=== PATIENT | male | born 2000 | race Hispanic/Latino ===

== ENCOUNTER 2022-10-01 15:06 | Emergency (ER) | payer SELFPAY ==
[2022-10-01] MEDS ORDERED: Lidocaine 1% w/Epinephrine 1:100K 20 ML VIAL ONE (15:23)
[2022-10-01] MEDS ORDERED: Boostrix 0.5 ML (Tdap) VIAL (>/=7 yrs of age) ONE (15:42)
[2022-10-01] MEDS ORDERED: Bacitracin 1 PK ONE (15:50)
== END 2022-10-01 15:57 | disposition home or self-care (01) ==
LOC: ERS 15:06
DX: S81.812A Laceration without foreign body, left lower leg, initial encounter (principal); W26.9XXA Contact with unspecified sharp object(s), initial encounter; Z23 Encounter for immunization
CPT/HCPCS: 12001; 90471; 90715

== ENCOUNTER 2022-10-12 11:42 | Emergency (ER) | payer SELFPAY | END 2022-10-12 12:30 | disposition home or self-care (01) | LOC: ERS 11:42 | DX: S81.812D Laceration without foreign body, left lower leg, subsequent encounter (principal); W45.8XXD Other foreign body or object entering through skin, subsequent encounter ==